=== PATIENT | female | born 1975 | race Caucasian/White ===

== ENCOUNTER 2017-02-26 08:07 | Emergency (ER) | payer OTHER ==
--- NOTE | ~2017-02-26 | ER ---
PATIENT'S NAME: SANDRITA PRICE [facility] AGE: 41 Y [address] ROOM: [place] [id number] LOCATION: ED ADMIT DATE: 02/26/2017 ER/Outpatient Report DISCHARGE DATE: 02/26/2017 FAMILY PHYSICIAN: Bertha Dominguez MD ATTENDING PHYSICIAN: Carter Benson CHIEF COMPLAINT: Severe back pain. HISTORY OF PRESENT ILLNESS: The patient states that for the last several months, she has had some back pain issues, however, over the last 12-24 hours, her symptoms have got significantly worse. She has been going to physical therapy and following with her primary care provider, Dr. Dominguez, for the same. She was recently started on steroids. She has not been taking any pain medication for this. She denies any bowel or bladder dysfunction but does state that it is difficult to walk. She was unable to get out of bed this morning and called the ambulance. She came in by ambulance. She did receive some pain medication, which did cause her to drop her blood pressures, but otherwise, she was doing okay and had no other symptoms. PAST MEDICAL HISTORY: Documented on the record and reviewed by me. SOCIAL HISTORY: Documented on the record and reviewed by me. MEDICATIONS: Documented on the record and reviewed by me. ALLERGIES: DOCUMENTED ON THE RECORD AND REVIEWED BY ME. REVIEW OF SYSTEMS: All systems were reviewed and negative except as noted in the HPI. PHYSICAL EXAMINATION: VITAL SIGNS: Blood pressure is 100/61, pulse is 73, respiratory rate 16, temperature 97.9, SpO2 is 97% on room air. Pain is rated at 3/10. GENERAL: An age-appropriate female, resting comfortably on the exam table. No obvious pain or distress, recumbent. NEURO: The patient is awake and alert. GCS is 15. No obvious asymmetry on exam. No asymmetry on the strength of the bilateral upper and lower extremities. The patient has no perineal sensation deficits but does have some slightly decreased rectal tone on exam. PATIENT'S NAME: SANDRITA PRICE [facility] AGE: 41 Y [address] ROOM: [place] [address] LOCATION: ED ADMIT DATE: 02/26/2017 ER/Outpatient Report DISCHARGE DATE: 02/26/2017 FAMILY PHYSICIAN: Bertha Dominguez MD ATTENDING PHYSICIAN: Carter Benson HEENT: Normocephalic, atraumatic. Eyes are PERRL. Oropharynx is clear. NECK: Supple. Trachea is midline. CHEST: Heart is regular rate and rhythm with no murmurs. LUNGS: Clear to auscultation bilateral with no rhonchi, wheezes, or rales. ABDOMEN: Soft, nontender, and nondistended. No rebound or guarding. BACK: Nontender to palpation except for the extreme lower lumbar spine and sacrum. The patient has no CVA tenderness. EXTREMITIES: Warm and well perfused. No deformities or edema. SKIN: Warm, dry, and intact. RECTAL: Slightly decreased tone. Normal sensation. No masses. LABORATORY DATA AND X-RAYS: MRI of the lumbar spine with L5-S1 disk extrusion without any nerve compression per Radiology. IMPRESSION: Acute on chronic back pain with neurologic findings not consistent with cauda equina syndrome. EMERGENCY DEPARTMENT COURSE: The patient was seen and evaluated as above. No evidence of nerve root injury. The patient was feeling better. She was not consistent with epidural abscess or paraspinal abscess. No lab work was required for evaluation today. Based on her low blood pressures with the fentanyl she received by EMS, she was not given any further medications and was feeling okay in the ER. We will give her prescriptions for Smock and Valium and Zofran. I expressed the desire for extreme caution using narcotics and muscle relaxers, however, given her current presentation, I believe she works both of them. She was able to verbalize the appropriate ways to take them for me. I did discuss the case with Dr. Dominguez, the patient's primary care provider before administering those medications. She should contact Dr. Dominguez for followup early next week. MD PIETER GUTIERREZ/dora /[id number] d: 02/26/179 t: 03/17/17 0851, OUTPATIENT REPORT
== END 2017-02-26 10:55 | disposition disaster alternative care site (69) ==
LOC: GMED 08:07
DX: M54.5 Low back pain (principal); G89.29 Other chronic pain

== ENCOUNTER → 2017-02-26 | Outpatient (CLI) | payer OTHER | END | disposition disaster alternative care site (69) | LOC: GAMB 07:41 | DX: M54.5 Low back pain (principal); Z79.52 Long term (current) use of systemic steroids; Z88.2 Allergy status to sulfonamides | CPT/HCPCS: A0425; A0427; J3010; J7030 ==

== ENCOUNTER → 2017-03-19 | Outpatient (CLI) | payer OTHER | END | disposition disaster alternative care site (69) | LOC: GRAD 08:38 | DX: R51 Headache (principal); G93.89 Other specified disorders of brain; R27.8 Other lack of coordination ==